=== PATIENT | female | born 2000 | race African-American/Black ===

== ENCOUNTER 2022-09-26 12:23 | Emergency (ER) | payer BC, OTHER ==
[~2022-09-26] VITALS: Ht 172.7 cm; Wt 50.0 kg
[2022-09-26 14:19] LABS: INR 1.14 (0.9-1.15); Partial Thromboplastin Time 30.4 sec (24.6-33.4)
[2022-09-26 14:20] LABS: Basophils # (auto) 0 10 ^3/uL (0-0.2); Eosinophils # (auto) 0.1 10 ^3/uL (0-0.8); Lymphocytes # (auto) 1.2 10 ^3/uL (0.4-5.4); Neutrophils # (auto) 2.4 10 ^3/uL (1.6-8.6); Nucleated Red Blood Cells % 0.2 %
[2022-09-26 14:22] LABS: Basophils % (auto) 1.1 % (0.0-2.0); Hematocrit 32.7 % (36.0-46.0); Lymphocytes % (auto) 29.2 % (10.0-50.0); Mean Corpuscular Hemoglobin 23.2 pg (28.0-32.0); Mean Corpuscular Hgb Conc. 30.6 g/dL (32.0-36.0); Mean Corpuscular Volume 75.9 fL (80.0-100.0); Monocytes # (auto) 0.5 10 ^3/uL (0-1.3); Monocytes % (auto) 10.6 % (0.0-12.0); Neutrophils % (auto) 56.1 % (37.0-80.0); Red Blood Cells 4.31 10^6/uL (4.0-5.20); White Blood Cell 4.3 10^3/uL (4.4-10.8)
[2022-09-26 14:23] LABS: Red Cell Distribution Width 22.8 % (11.8-14.3)
[2022-09-26 15:19] VITALS: BP 125/74
== END 2022-09-26 15:31 | disposition home or self-care (01) ==
LOC: ER 12:23 → EDBD 12:23 → ER 15:31
DX: N92.6 Irregular menstruation, unspecified (principal); R10.2 Pelvic and perineal pain; Z32.02 Encounter for pregnancy test, result negative
CPT/HCPCS: 36415; 84702; 85025; 85610; 85730